=== PATIENT | male | born 1980 | race Caucasian/White ===

== ENCOUNTER 2022-05-05 05:38 | Outpatient (CLI) | payer BC ==
[~2022-05-05] VITALS: Ht 175.3 cm; Wt 118.0 kg
[2022-05-06] MEDS ORDERED: PANT40TA52 PO (12:22)
[2022-05-06] MEDS ORDERED: TRZ50T PO (12:22)
[2022-05-06] MEDS ORDERED: VENL150C98 PO (12:22)
[2022-05-06] MEDS ORDERED: FAMO20TA3 PO (12:22)
[2022-05-06] MEDS ORDERED: VENL75CA93 PO (12:22)
== END 2022-05-06 12:24 | disposition home or self-care (01) ==
LOC: PREOP 05:38
PROVIDERS: ATTEND Surgery
DX: Z01.818 Encounter for other preprocedural examination (principal)

== ENCOUNTER 2022-05-18 07:19 | Day surgery (SDC) | payer BC ==
[~2022-05-18] VITALS: Ht 175.3 cm; Wt 118.0 kg
[2022-05-18] VITALS (7 sets, daily range): BP systolic 122–139; BP diastolic 68–93
[~2022-05-18 07:19] MED LIST: FAMO20TA3 PO; PANT40TA52 PO; TRZ50T PO; VENL150C98 PO; VENL75CA93 PO
[2022-05-18] MEDS ORDERED: LACTATED RINGERS 1,000 ML IV STA (07:25)
[2022-05-18] MEDS ORDERED: HURRICAINE EXT TUBE (BENZOCAINE) XX PRN (07:30)
--- NOTE | 2022-05-18 08:18 | Progress Note-Pre Operative ---
Pre-Operative Progress Note Date of Available H&P: Apr 26, 2022 Date H&P Reviewed: May 18, 2022 Time H&P Reviewed: 08:18 History & Physical: H&P Reviewed, Patient Examed, No changes noted Pre-Operative Diagnosis: gerd JIMMY SWANN DO May 18, 2022 08:18
[2022-05-18] MEDS ORDERED: PROPOFOL INJECTION 50 ML IV ONE (08:55)
[2022-05-18] MEDS ORDERED: MIDAZOLAM 2 MG/2 ML (VERSED) VIAL ONE (08:55)
--- NOTE | 2022-05-18 09:05 | Discharge Inst-Simple/Standard ---
Discharge Inst-Standard Patient Instructions/Follow Up Plan of Care/Instructions/FU: Carlos 2 weeks Activity as Tolerated: Yes Discharge Diet: No Restrictions, Regular Diet JIMMY SWANN DO May 18, 2022 09:05
--- NOTE | 2022-05-18 16:52 | OPERATIVE REPORT ---
DATE OF SERVICE: 05/18/2022 PREOPERATIVE DIAGNOSIS: Gastroesophageal reflux disease. POSTOPERATIVE DIAGNOSIS: Gastroesophageal reflux disease. PROCEDURE: EGD with biopsies. SURGEON: Jimmy Gonzalez DO. ANESTHESIA: Per BOBBIN HAULER. ESTIMATED BLOOD LOSS: None. COMPLICATIONS: None. INDICATIONS: The patient is a 41-year-old male, with gastroesophageal reflux disease symptoms. He understands the risks and benefits of the procedure and wished to proceed. Consent was signed and in chart. DESCRIPTION OF PROCEDURE: The patient was taken to the endoscopy suite, placed in left lateral recumbent position. Timeout was performed. Scope was inserted in the mouth, down the esophagus, stomach and into the duodenum without difficulty. No polyps, masses or ulcerations within the duodenum. Scope was retracted back to the stomach where it was further insufflated. No polyps, masses, ulcerations. Biopsy of the antrum was obtained. Scope was retroflexed, noting no other pathology. Scope was returned to its normal position, slowly withdrawn to the distal esophagus. Biopsy of the GE junction was obtained. Scope was slowly retracted back. No polyps, masses or ulcerations within the remainder of the esophagus. No other pathology noted until the scope was completely removed. The patient tolerated the procedure well without complications, taken to recovery in stable condition. RECOMMENDATIONS: The patient will continue on current medications. We will await biopsy results. Further recommendations pending. Job ID: [id number] DocumentID: [id number] Dictated Date: 05/18/2022 09:05:54 [employer] Date: 05/18/2022 16:49:00 Dictated By: JIMMY GONZALEZ DO
--- NOTE | 2022-05-18 17:52 | Anesthesia-General Post-Op ---
MAC Patient Condition Mental Status/LOC: Same as Preop Cardiovascular: Satisfactory Nausea/Vomiting: Absent Respiratory: Satisfactory Pain: Controlled Complications: Absent Post Op Complications Complications None Follow Up Care/Instructions Patient Instructions None needed. Anesthesiology Discharge Order Discharge Order Patient is doing well, no complaints, stable vital signs, no apparent adverse anesthesia problems. No complications reported per nursing. DARIA PENA CRNA May 18, 2022 17:52
== END 2022-05-18 09:45 | disposition home or self-care (01) ==
LOC: ENDO 07:19
PROVIDERS: ATTEND Surgery
DX: K21.9 Gastro-esophageal reflux disease without esophagitis (principal); K31.89 Other diseases of stomach and duodenum; K40.90 Unilateral inguinal hernia, without obstruction or gangrene, not specified as recurrent; Z79.899 Other long term (current) drug therapy
CPT/HCPCS: 88305

== ENCOUNTER → 2022-06-30 | Outpatient (CLI) | payer BC ==
--- NOTE | 2022-06-30 10:52 | Diagnostic Imaging Report ---
PROCEDURE: US Gallbladder. TECHNIQUE: Multiple real-time grayscale images were obtained over the right upper quadrant in various projections. INDICATION: Abdominal pain. The liver is normal in size at 15 cm. Portal vein demonstrate normal direction of flow. No liver mass is detected. Gallbladder is without stones or sludge. No wall thickening or biliary duct dilatation is identified. Pancreas is poorly visualized due to overlying bowel gas. Aorta is also poorly visualized. IVC appears patent. Right kidneys without calculi or hydronephrosis. There is no ascites. IMPRESSION: Somewhat limited study due to overlying bowel gas. There is no evidence of cholelithiasis or acute cholecystitis. Dictated by: Dictated on workstation # [id number]
== END ==
LOC: RAD 09:21
PROVIDERS: ATTEND Nurse Practitioner
DX: R10.9 Unspecified abdominal pain (principal)
CPT/HCPCS: 76705

== ENCOUNTER → 2022-08-19 | Outpatient (CLI) | payer BC ==
[~2022-08-19] MED LIST changes: +CATHETER FLUSH 10 ML SYR IVP PRN
--- NOTE | 2022-08-19 12:27 | Diagnostic Imaging Report ---
RADIOPHARMACEUTICAL: 5.5mCi Tc-99m Choletec IV INDICATION: Right upper quadrant pain COMPARISON: 06/30/2022 TECHNIQUE: Anterior dynamic imaging for 45 minutes. Additional 60 minute imaging was performed after patient ingested an 8 ounce can of ensure plus. FINDINGS: There is homogenous uptake throughout the liver. The gallbladder is visualized at 15minutes and small bowel at 15minutes. After drinking an 8 ounce can of ensure plus, there is normal contraction of the gallbladder with normal calculated GBEF at 58%. IMPRESSION: 1. Normal HIDA Scan without evidence of cystic or common duct obstruction. 2. Normal GBEF of 58%. Dictated by: Dictated on workstation # [id number]
== END ==
LOC: CARD 09:38
PROVIDERS: ATTEND Surgery
DX: R10.11 Right upper quadrant pain (principal)
CPT/HCPCS: 78227; A9537